=== PATIENT | female | born 1990 ===

== ENCOUNTER 2016-11-30 19:41 | Emergency (ER) | payer SELFPAY ==
[2016-11-30 19:49] VITALS: BP 122/77; PULSE 62; RESP 18; TEMP 97.4; O2SAT 100
--- NOTE | 2016-11-30 20:15 | ED PDOC ---
HPI: Back Time Seen by Provider: 11/30/16 20:01 Chief Complaint (Nursing): Back Pain Chief Complaint (Provider): back pain History Per: Patient History/Exam Limitations: no limitations Onset/Duration Of Symptoms: Days (2) Current Symptoms Are (Timing): Still Present Exacerbating Factor(s): Turning, Movement Additional History Per: Patient Additional Complaint(s): 26 y/o female presents for eval of right upper back pain x 2 days. 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 Patient also noted blood mixed with her urine a few days ago. Denies fever, nausea/vomiting, chest pain, abdominal pain, changes in bowel movements, dysuria, vaginal bleeding/discharge. Past Medical History Reviewed: Historical Data, Nursing Documentation, Vital Signs Vital Signs: Last Vital Signs Temp 97.4 F L 11/30/16 19:49 Pulse 62 11/30/16 19:49 Resp 18 11/30/16 19:49 BP 122/77 11/30/16 19:49 Pulse Ox 100 11/30/16 19:49 - Medical History PMH: No Chronic Diseases - Surgical History Surgical History: No Surg Hx - Family History Family History: States: Unknown Family Hx - Home Medications Home Medications: Ambulatory Orders Medication Instructions Recorded Cyclobenzaprine [Cyclobenzaprine 10 mg PO BID PRN #10 tab 11/30/16 HCl] Lidocaine 5% [Lidoderm] 1 patch TOP DAILY #5 patch 11/30/16 Naproxen [Naprosyn] 500 mg PO Q12 PRN #20 tablet 11/30/16 - Allergies Allergies/Adverse Reactions: Allergies Allergy/AdvReac Type Severity Reaction Status Date / Time No Known Allergies Allergy Verified 01/28/14 16:51 Review of Systems ROS Statement: Except As Marked, All Systems Reviewed And Found Negative Musculoskeletal: Positive for: Back Pain Physical Exam - Reviewed Nursing Documentation Reviewed: Yes Vital Signs Reviewed: Yes - Physical Exam Appears: Positive for: Well, Non-toxic, No Acute Distress Head Exam: Positive for: ATRAUMATIC, NORMAL INSPECTION, NORMOCEPHALIC Skin: Positive for: Normal Color Eye Exam: Positive for: Normal appearance ENT: Positive for: Normal ENT Inspection Cardiovascular/Chest: Positive for: Regular Rate, Rhythm Respiratory: Positive for: Normal Breath Sounds Gastrointestinal/Abdominal: Positive for: Bowel Sounds, Soft, Tenderness (right flank) Back: Positive for: Muscle Spasm (right tspine paraspinals). Negative for: L CVA Tenderness, R CVA Tenderness, Vertebral Tenderness, Decreased ROM Extremity: Positive for: Normal ROM Neurologic/Psych: Positive for: Alert, Oriented - Laboratory Results Result Diagrams: 11/30/16 20:53 11/30/16 20:53 - ECG O2 Sat by Pulse Oximetry: 100 - Progress ED Course And Treament: urine shows large blood; will order labs, CT renal protocol to rule out renal stone. IV fluids, IV toradol, PO flexeril ordered EXAM: CT Abdomen and Pelvis Without Intravenous Contrast CLINICAL HISTORY: 26 years old, female; Pain; Abdominal pain; Flank; Right; Additional info: Right back/flank pain TECHNIQUE: Axial computed tomography images of the abdomen and pelvis without intravenous contrast. This CT exam was performed using one or more of the following dose reduction techniques: automated exposure control, adjustment of the mA and/or kV according to patient size, and/ or use of iterative reconstruction technique. Coronal and sagittal reformatted images were created and reviewed. COMPARISON: No relevant prior studies available. FINDINGS: Lower thorax: No acute findings. ABDOMEN: Liver: Unremarkable. Gallbladder and bile ducts: Unremarkable. No calcified stones. No ductal dilation. Pancreas: Unremarkable. No ductal dilation. Spleen: Unremarkable. No splenomegaly. Adrenals: Unremarkable. No mass. Kidneys and ureters: Unremarkable. No obstructing stones. No hydronephrosis. Stomach and bowel: No obstruction. Question mild mucosal thickening. Appendix: No findings to suggest acute appendicitis. PELVIS: Bladder: Unremarkable. No stones. Reproductive: Unremarkable as visualized. ABDOMEN and PELVIS: Intraperitoneal space: Unremarkable. No free air. No significant fluid collection. Bones/joints: No acute fracture. No dislocation. Soft tissues: Unremarkable. Vasculature: Unremarkable. No abdominal aortic aneurysm. Lymph nodes: Unremarkable. No enlarged lymph nodes. IMPRESSION: No CT evidence for obstructive uropathy Nonspecific nonobstructed bowel gas pattern On re-eval, patient states she is feeling better. Patient educated on findings, discharged with rx Naproxen, Flexeril, Lidoderm patch. Advised follow up PMD 2-3 days. Return to ED for worsening/concerning symptoms. Disposition - Clinical Impression Clinical Impression: Back strain - Patient ED Disposition Is Patient to be Admitted: No Counseled Patient/Family Regarding: Studies Performed, Diagnosis, Need For Followup, Rx Given - Disposition Referrals: [facility] [Outside] Disposition: Routine/Home Disposition Time: 23:09 Condition: IMPROVED Prescriptions: Cyclobenzaprine [Cyclobenzaprine HCl] 10 mg PO BID PRN #10 tab PRN Reason: Muscle Spasm Lidocaine 5% [Lidoderm] 1 patch TOP DAILY #5 patch Naproxen [Naprosyn] 500 mg PO Q12 PRN #20 tablet PRN Reason: Pain, Moderate (4-7) Instructions: Muscle Strain (ED) Forms: [facility] ED School/Work Excuse
[2016-11-30] MEDS ORDERED: Sodium Chloride 0.9% 1,000 ML IV STA (20:29)
[2016-11-30 21:06] LABS: BASO # 0.1 K/uL (0.0-0.2); BASO % 0.7 % (0.0-2.0); EOS # 0.5 K/uL (0.0-0.7); HEMOGLOBIN 14.7 g/dL (12.0-16.0); LYMPH # 3.2 K/uL (1.0-4.3); LYMPH % 35.5 % (20.0-40.0); MEAN CELL VOLUME 90.8 fl (81.0-99.0); MEAN CORPUSCULAR HEMOGLOBIN 31.5 pg (27.0-31.0); MEAN CORPUSCULAR HGB CONC 34.6 g/dL (33.0-37.0); MEAN PLATELET VOLUME 8.9 fl (7.2-11.7); MONO # 0.4 K/uL (0.0-0.8); MONO % 4.9 % (0.0-10.0); NEUT # 4.7 K/uL (1.8-7.0); NEUT % 52.9 % (50.0-75.0); NRBC % 0.1 % (0.0-0.0); RBC 4.69 Mil/uL (3.80-5.20); RED CELL DISTRIBUTION WIDTH 12.7 % (11.5-14.5)
[2016-11-30 21:08] LABS: ALB/GLOB RATIO 1.3 (1.0-2.1); ALBUMIN 4.5 g/dL (3.5-5.0); ALT/SGPT 37 U/L (9-52); AST/SGOT 34 U/L (14-36); BLOOD UREA NITROGEN 9 mg/dl (7-17); GFR AFRICAN-AMERICAN > 60; GFR NON-AFRICAN AMERICAN > 60
[2016-11-30 21:13] LABS: SQUAMOUS EPITHIAL 2 /hpf (0-5); URINE BACTERIA RARE (<OCC); URINE BILIRUBIN NEGATIVE (NEGATIVE); URINE BLOOD MODERATE (NEGATIVE); URINE CLARITY SLIGHTY-CLOUDY (Clear); URINE COLOR YELLOW (YELLOW); URINE GLUCOSE (UA) NEG (Normal); URINE LEUKOCYTE ESTERASE NEG Leu/uL (Negative); URINE NITRATE NEGATIVE (NEGATIVE); URINE PROTEIN 30 mg/dL (NEGATIVE); URINE UROBILINOGEN 0.2-1.0 mg/dL (0.2-1.0)
--- NOTE | 2016-12-01 11:30 | CT ---
PROCEDURE: CT Abdomen and Pelvis without intravenous contrast HISTORY: right back/flank pain COMPARISON: None. TECHNIQUE: Without contrast.. Contrast Dose: 0 Radiation dose: Total exam DLP = 872.79 mGy-cm. This CT exam was performed using one or more of the following dose reduction techniques: Automated exposure control, adjustment of the mA and/or kV according to patient size, and/or use of iterative reconstruction technique. FINDINGS: LOWER THORAX: Unremarkable. LIVER: Unremarkable. No gross lesion or ductal dilatation. GALLBLADDER AND BILE DUCTS: Unremarkable. PANCREAS: Unremarkable. No gross lesion or ductal dilatation. SPLEEN: Unremarkable. ADRENALS: Unremarkable. No mass. KIDNEYS AND URETERS: Unremarkable. No hydronephrosis. No solid mass. VASCULATURE: Unremarkable. No aortic aneurysm. BOWEL: Pancolonic diverticulosis. No evidence of diverticulitis. Mild mural thickening of the transverse colon, likely secondary to chronic muscular hypertrophy. Cannot rule out nonspecific transverse colitis. . No other abnormal bowel identified. No bowel obstruction. APPENDIX: Unremarkable. Normal appendix. PERITONEUM: Unremarkable. No free fluid. No free air. LYMPH NODES: Unremarkable. No enlarged lymph nodes. BLADDER: Unremarkable. REPRODUCTIVE: Normal uterus. BONES: No acute fracture. OTHER FINDINGS: None. IMPRESSION: No evidence of urinary calculus or urinary tract obstruction. Mckeon colonic diverticulosis. Mild mural thickening of the transverse colon most likely secondary to chronic muscular hypertrophy. Cannot rule out nonspecific transverse colitis. Please correlate. The remainder of the examination is unremarkable. Preliminary interpretation of this examination was reported by [employer] at 10:38 p.m. on 11/30/2016. There is discordance of this report with the preliminary interpretation. The possibility of a nonspecific transverse colitis was not discussed in the preliminary report of this examination.
== END 2016-11-30 23:31 | disposition home or self-care (01) ==
LOC: H.ER 19:41
DX: M62.830 Muscle spasm of back (principal); K57.30 Diverticulosis of large intestine without perforation or abscess without bleeding
CPT/HCPCS: 74176; 80053; 81003; 81025; 85025; 87086; 96360; 99283; J1885; J7040

== ENCOUNTER 2016-12-06 19:08 | Observation (INO) | payer SELFPAY ==
[2016-12-06 19:51] VITALS: BP 115/59; PULSE 64; RESP 16; TEMP 98; O2SAT 98
[2016-12-06] MEDS ORDERED: Sodium Chloride 0.9% 1,000 ML IV STA (20:32)
[2016-12-06] MEDS ORDERED: Iohexol 240 (50 ml) PO ONE (20:32)
--- NOTE | 2016-12-06 21:43 | ED PDOC ---
HPI: Abdomen Time Seen by Provider: 12/06/16 20:19 Chief Complaint (Nursing): Abdominal Pain Chief Complaint (Provider): Abdominal Pain History Per: Patient History/Exam Limitations: no limitations Onset/Duration Of Symptoms: Days (x2) Additional Complaint(s): Janet Grimaldo, 26 year old female presents to the ED with abdominal pain after falling in her bathtub 2 days prior to arrival. The patient reports injuring the left side of her abdomen and since then has had pain when twisting her torso. She also notes bruising to that area. PMD: None Provided Past Medical History Reviewed: Historical Data, Nursing Documentation, Vital Signs Vital Signs: Last Vital Signs Temp 98.0 F 12/06/16 19:47 Pulse 64 12/06/16 19:47 Resp 16 12/06/16 19:47 BP 115/59 L 12/06/16 19:47 Pulse Ox 98 12/06/16 22:11 - Medical History PMH: No Chronic Diseases - Family History Family History: States: Unknown Family Hx - Home Medications Home Medications: Ambulatory Orders Medication Instructions Recorded Cyclobenzaprine [Cyclobenzaprine 10 mg PO BID PRN #10 tab 11/30/16 HCl] Lidocaine 5% [Lidoderm] 1 patch TOP DAILY #5 patch 11/30/16 Naproxen [Naprosyn] 500 mg PO Q12 PRN #20 tablet 11/30/16 - Allergies Allergies/Adverse Reactions: Allergies Allergy/AdvReac Type Severity Reaction Status Date / Time No Known Allergies Allergy Verified 01/28/14 16:51 Review of Systems ROS Statement: Except As Marked, All Systems Reviewed And Found Negative Gastrointestinal: Positive for: Abdominal Pain Skin: Positive for: Bruising (to left side of abdomen ) Physical Exam - Reviewed Nursing Documentation Reviewed: Yes Vital Signs Reviewed: Yes - Physical Exam Appears: Positive for: Well, Non-toxic, No Acute Distress Head Exam: Positive for: ATRAUMATIC, NORMAL INSPECTION, NORMOCEPHALIC Skin: Positive for: Normal Color, Warm. Negative for: Rash Eye Exam: Positive for: EOMI, Normal appearance, PERRL ENT: Positive for: Normal ENT Inspection Neck: Positive for: Normal, Painless ROM Cardiovascular/Chest: Positive for: Regular Rate, Rhythm, Chest Non Tender Respiratory: Positive for: CNT, Normal Breath Sounds Gastrointestinal/Abdominal: Positive for: Normal Exam, Bowel Sounds, Soft, Tenderness (mild tenderness to LUQ), Other (ecchymosis to LUQ and all along the abdomen area along axillary side ) Back: Positive for: Normal Inspection. Negative for: L CVA Tenderness, R CVA Tenderness, Vertebral Tenderness Extremity: Positive for: Normal ROM Neurologic/Psych: Positive for: Alert, Oriented - Laboratory Results Result Diagrams: 12/06/16 23:17 12/06/16 23:17 - ECG O2 Sat by Pulse Oximetry: 98 (RA) Pulse Ox Interpretation: Normal Medical Decision Making Medical Decision Making: Impression: Abdominal Pain Plan: * Type and Screen * CT Abd Pelvis PO & IV Contrast * COMP Metabolic panel * HCG, Qualitative * NPO Diet * CBC (With Differential) * COAG * PT/INR COAG * IV Insertion (Saline Lock) * Urinalysis * Morphine 2 mg IVP * Sodium Chloride 0.9% 1,000 ml IV 100 mls/hr * Omnipaque 240 (50 ML) PO * Zofran Inj 4 mg IVP * Admit to Hospital Scribe Attestation: Documented by Elodia Ma, acting as a scribe for Torsten Bang PA-C. Provider Scribe Attestation: All medical record entries made by the Scribe were at my direction and personally dictated by me. I have reviewed the chart and agree that the record accurately reflects my personal performance of the history, physical exam, medical decision making, and the department course for this patient. I have also personally directed, reviewed, and agree with the discharge instructions and disposition. ED OBSERVATION Date of observation admission: 12/06/16 Time of observation admission: 20:31 - Observation admission statement Patient is being placed in observation because:: Time-extensive ED evaluation. - Goals of Observation Goals of observation are:: Results of ED workup and eventual disposition. - Progress Note Progress Note: 12/07/16 23:00 Pt in no distress. Still pending CT. Disposition - Clinical Impression Clinical Impression: Abdominal pain - Patient ED Disposition Is Patient to be Admitted: Transfer of Care (Signed out to Akosua AKINS pending disposition and CT results.) - Disposition Disposition Time: 00:00 Condition: STABLE
[2016-12-06] MEDS ORDERED: Iohexol 240 (50 ml) ONE (22:02)
[2016-12-06 23:25] LABS: BASO # 0.1 K/uL (0.0-0.2); BASO % 0.6 % (0.0-2.0); EOS # 0.3 K/uL (0.0-0.7); EOS % 2.7 % (0.0-4.0); HEMOGLOBIN 14.5 g/dL (12.0-16.0); LYMPH # 4.2 K/uL (1.0-4.3); LYMPH % 39.2 % (20.0-40.0); MEAN CELL VOLUME 91.5 fl (81.0-99.0); MEAN CORPUSCULAR HEMOGLOBIN 32.2 pg (27.0-31.0); MEAN CORPUSCULAR HGB CONC 35.2 g/dL (33.0-37.0); MEAN PLATELET VOLUME 9.2 fl (7.2-11.7); MONO # 0.5 K/uL (0.0-0.8); MONO % 4.7 % (0.0-10.0); NEUT # 5.7 K/uL (1.8-7.0); NEUT % 52.8 % (50.0-75.0); RBC 4.5 Mil/uL (3.80-5.20); WHITE BLOOD COUNT 10.8 K/uL (4.8-10.8)
[2016-12-06 23:33] LABS: ALB/GLOB RATIO 1.3 (1.0-2.1); ALBUMIN 4.3 g/dL (3.5-5.0); ALT/SGPT 46 U/L (9-52); AST/SGOT 63 U/L (14-36); BLOOD UREA NITROGEN 10 mg/dl (7-17); CALCIUM 9.3 mg/dL (8.4-10.2); GFR AFRICAN-AMERICAN > 60; GFR NON-AFRICAN AMERICAN > 60; SQUAMOUS EPITHIAL 1 /hpf (0-5); URINE BILIRUBIN NEGATIVE (NEGATIVE); URINE BLOOD NEGATIVE (NEGATIVE); URINE CLARITY SLIGHTY-CLOUDY (Clear); URINE COLOR YELLOW (YELLOW); URINE GLUCOSE (UA) NEG (Normal); URINE LEUKOCYTE ESTERASE NEG Leu/uL (Negative); URINE NITRATE NEGATIVE (NEGATIVE); URINE PROTEIN NEGATIVE (NEGATIVE); URINE UROBILINOGEN 0.2-1.0 mg/dL (0.2-1.0)
[2016-12-06 23:55] LABS: PROTHROMBIN TIME 10.9 Seconds (9.8-13.1)
[2016-12-06 23:56] LABS: PARTIAL THROMBOPLASTIN TIME 28.2 Seconds (25.6-37.1)
[2016-12-07] MEDS ORDERED: Sodium Chloride 0.9% 50 ML IV ONE (00:35)
[2016-12-07] MEDS ORDERED: Iohexol 300 100 ML IJ ONE (00:35)
--- NOTE | 2016-12-07 01:34 | ED PDOC ---
- Laboratory Results Result Diagrams: 12/06/16 23:17 12/06/16 23:17 - ECG O2 Sat by Pulse Oximetry: 98 (RA) - Progress ED Course And Treament: Case endorsed to signwriter from Beti AKINS pending CT EXAM: CT Abdomen and Pelvis With Intravenous Contrast CLINICAL HISTORY: 26 years old, female; Injury or trauma; Fall; Initial encounter; Blunt; Luq; Additional info: Luq ecchymosis and l axillary ecchymosis TECHNIQUE: Axial computed tomography images of the abdomen and pelvis with intravenous contrast. This CT exam was performed using one or more of the following dose reduction techniques : automated exposure control, adjustment of the mA and/or kV according to patient size, and/ or use of iterative reconstruction technique. Coronal and sagittal reformatted images were created and reviewed. CONTRAST: 90 mL of [id number] administered intravenously. EXAM DATE/TIME: 12/06/2016 8:29 PM COMPARISON: CT - ABD PELVIS W/O PO OR IV CONT 11/30/2016 9:46:32 PM FINDINGS: ABDOMEN: Liver: Unremarkable. No mass. Gallbladder and bile ducts: Unremarkable. No calcified stones. No ductal dilation. Pancreas: Unremarkable. No mass. No ductal dilation. Spleen: Unremarkable. No splenomegaly. Adrenals: Unremarkable. No mass. Kidneys and ureters: Unremarkable. No solid mass. No hydronephrosis. Stomach and bowel: Unremarkable. No obstruction. No mucosal thickening. Appendix: The appendix is not visualized with certainty. There is no chirag pericecal inflammation or or pericecal fluid collection to suggest appendicitis. (Please note that acute appendicitis cannot be completely excluded without the visualization of a normal appendix). PELVIS: Bladder: Unremarkable. No mass. Reproductive: Unremarkable as visualized. ABDOMEN and PELVIS: Intraperitoneal space: Unremarkable. No free air. No significant fluid collection. Bones/joints: No acute fracture. No dislocation. Vasculature: There is no aortic aneurysm or dissection. Lymph nodes: Unremarkable. No enlarged lymph nodes. IMPRESSION: No acute findings. Patient educated on findings, discharged with rx Naproxen. Advised follow up PMD 2-3 days. Return to ED for worsening/concerning symptoms. Disposition - Clinical Impression Clinical Impression: Abdominal pain - POA Present On Arrival: Falls Or Trauma - Disposition Disposition: Routine/Home Disposition Time: 01:36 Condition: STABLE
--- NOTE | 2016-12-07 10:32 | CT ---
PROCEDURE: CT Abdomen and Pelvis with contrast HISTORY: LUQ ecchymosis and L axillary ecchymosis COMPARISON: 11/30/2016 TECHNIQUE: Contrast dose: 90 mL Omnipaque 300 Radiation dose: Total exam DLP = 559.94 mGy-cm. This CT exam was performed using one or more of the following dose reduction techniques: Automated exposure control, adjustment of the mA and/or kV according to patient size, and/or use of iterative reconstruction technique. FINDINGS: LOWER THORAX: Unremarkable. LIVER: Unremarkable. No gross lesion or ductal dilatation. GALLBLADDER AND BILE DUCTS: Unremarkable. PANCREAS: Unremarkable. No gross lesion or ductal dilatation. SPLEEN: Unremarkable. ADRENALS: Unremarkable. No mass. KIDNEYS AND URETERS: Unremarkable. No hydronephrosis. No solid mass. VASCULATURE: Unremarkable. No aortic aneurysm. BOWEL: Scattered colonic diverticular APPENDIX: Normal appendix not visualized. No secondary findings to suggest acute appendicitis. PERITONEUM: Unremarkable. No free fluid. No free air. LYMPH NODES: Unremarkable. No enlarged lymph nodes. BLADDER: Unremarkable. REPRODUCTIVE: Normal uterus BONES: No acute fracture. OTHER FINDINGS: None. IMPRESSION: No acute abnormality. Preliminary interpretation of this examination was reported by [employer] at 1:26 a.m. on 12/07/2016. There is concurrence of this report with the preliminary interpretation.
== END 2016-12-07 01:38 | disposition home or self-care (01) ==
LOC: H.ER 19:08 → H.EROBSV 20:31
PROVIDERS: ADMIT Emergency Medicine; ATTEND Emergency Medicine
DX: R10.9 Unspecified abdominal pain (principal); W18.39XA Other fall on same level, initial encounter
CPT/HCPCS: 36415; 74177; 80053; 81003; 81025; 84703; 85025; 85610; 85730; 86850; 86900; 96374; 96375; G0378; J2270; J2405; J7040; Q9966; Q9967

== ENCOUNTER 2017-02-19 13:25 | Emergency (ER) | payer BC ==
[2017-02-19 13:41] VITALS: BP 137/78; PULSE 66; RESP 20; TEMP 97; O2SAT 99
--- NOTE | 2017-02-19 13:50 | ED PDOC ---
HPI: Dental Pain/Injury Time Seen by Provider: 02/19/17 13:48 Chief Complaint (Nursing): Dental Pain Chief Complaint (Provider): dental History Per: Patient History/Exam Limitations: no limitations Additional Complaint(s): 26yo F in ED for eval of tooth injury-states she cracked her tooth, took motrin not working no fever no chills no sore throat. will see dentist irene. Past Medical History Reviewed: Historical Data, Nursing Documentation, Vital Signs Vital Signs: Last Vital Signs Temp 97 F L 02/19/17 13:39 Pulse 66 02/19/17 13:39 Resp 20 02/19/17 13:39 BP 137/78 02/19/17 13:39 Pulse Ox 99 02/19/17 13:39 - Medical History PMH: No Chronic Diseases - Family History Family History: States: Unknown Family Hx - Home Medications Home Medications: Ambulatory Orders Medication Instructions Recorded Cyclobenzaprine [Cyclobenzaprine 10 mg PO BID PRN #10 tab 11/30/16 HCl] Lidocaine 5% [Lidoderm] 1 patch TOP DAILY #5 patch 11/30/16 Naproxen [Naprosyn] 500 mg PO Q12 PRN #20 tablet 11/30/16 Naproxen [Naprosyn] 500 mg PO Q12 PRN #20 tablet 12/07/16 Acetaminophen with Codeine 1 each PO Q8 #12 tablet 02/19/17 [Tylenol with Codeine #3 Tablet] Naproxen [Naprosyn] 500 mg PO BID #30 tablet 02/19/17 - Allergies Allergies/Adverse Reactions: Allergies Allergy/AdvReac Type Severity Reaction Status Date / Time No Known Allergies Allergy Verified 01/28/14 16:51 Review of Systems ROS Statement: Except As Marked, All Systems Reviewed And Found Negative Constitutional: Negative for: Fever, Chills Physical Exam - Reviewed Nursing Documentation Reviewed: Yes Vital Signs Reviewed: Yes - Physical Exam Appears: Positive for: Well, Non-toxic, No Acute Distress Skin: Positive for: Normal Color, Warm, DRY ENT: Positive for: Other (dental: upper right molar-injury carcked tooth noted no swelilng to gums no draainge. no signs of infection. ) Cardiovascular/Chest: Positive for: Regular Rate, Rhythm Respiratory: Positive for: CNT, Normal Breath Sounds Neurologic/Psych: Positive for: Alert, Oriented - ECG O2 Sat by Pulse Oximetry: 99 Medical Decision Making Medical Decision Making: pt opts to have Rx for pain control and not medicate din ED st[place] VS and well appearing advised to maintain appoint. Disposition - Clinical Impression Clinical Impression: Dental injury - Patient ED Disposition Is Patient to be Admitted: No Counseled Patient/Family Regarding: Need For Followup, Rx Given - Disposition Disposition: Routine/Home Disposition Time: 13:51 Condition: STABLE Prescriptions: Acetaminophen with Codeine [Tylenol with Codeine #3 Tablet] 1 each PO Q8 #12 tablet Naproxen [Naprosyn] 500 mg PO BID #30 tablet Instructions: Acute Dental Trauma (ED)
== END 2017-02-19 14:25 | disposition home or self-care (01) ==
LOC: H.ER 13:25
DX: K08.89 Other specified disorders of teeth and supporting structures (principal)

== ENCOUNTER 2017-02-26 14:37 | Emergency (ER) | payer BC ==
[2017-02-26 14:46] VITALS: BP 108/61; PULSE 80; RESP 16; TEMP 98.3; O2SAT 99
--- NOTE | 2017-02-26 15:26 | ED PDOC ---
HPI: General Adult Time Seen by Provider: 02/26/17 14:55 Chief Complaint (Nursing): GI Problem History Per: Patient Current Symptoms Are (Timing): Gone Now Severity: None Additional History Per: Patient Additional Complaint(s): 26 y/o female complaining of right upper tooth pain for the last week that was sudden onset and atraumatic. She denies any gingival swelling or fever. 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 No abdominal pain, hematemesis, or diarrhea. At this time she denies any complaints but pt. was instructed to get doctor's note before returning to work. Past Medical History Vital Signs: Last Vital Signs Temp 98.3 F 02/26/17 14:43 Pulse 80 02/26/17 14:43 Resp 16 02/26/17 14:43 BP 108/61 02/26/17 14:43 Pulse Ox 99 02/26/17 15:29 - Medical History PMH: No Chronic Diseases - Surgical History Surgical History: No Surg Hx - Family History Family History: States: Unknown Family Hx - Social History Current smoker - smoking cessation education provided: No Ex-Smoker (has not smoked in the last 12 months): No Alcohol: None Drugs: Denies - Home Medications Home Medications: Ambulatory Orders Medication Instructions Recorded Cyclobenzaprine [Cyclobenzaprine 10 mg PO BID PRN #10 tab 11/30/16 HCl] Lidocaine 5% [Lidoderm] 1 patch TOP DAILY #5 patch 11/30/16 Naproxen [Naprosyn] 500 mg PO Q12 PRN #20 tablet 11/30/16 Naproxen [Naprosyn] 500 mg PO Q12 PRN #20 tablet 12/07/16 Acetaminophen with Codeine 1 each PO Q8 #12 tablet 02/19/17 [Tylenol with Codeine #3 Tablet] Naproxen [Naprosyn] 500 mg PO BID #30 tablet 02/19/17 - Allergies Allergies/Adverse Reactions: Allergies Allergy/AdvReac Type Severity Reaction Status Date / Time No Known Allergies Allergy Verified 01/28/14 16:51 Review of Systems ROS Statement: Except As Marked, All Systems Reviewed And Found Negative Constitutional: Negative for: Fever Gastrointestinal: Positive for: Vomiting. Negative for: Nausea, Abdominal Pain , Hematemesis Physical Exam - Physical Exam Appears: Positive for: Well, No Acute Distress Skin: Positive for: Normal Color, Warm, Dry ENT: Positive for: Normal ENT Inspection, Other (no gingival swelling or obvious caries). Negative for: Pharyngeal Erythema, Tonsillar Exudate, Tonsillar Swelling Gastrointestinal/Abdominal: Positive for: Normal Exam, Bowel Sounds, Soft. Negative for: Tenderness, Guarding, Rebound Back: Negative for: L CVA Tenderness, R CVA Tenderness - ECG O2 Sat by Pulse Oximetry: 99 Medical Decision Making Medical Decision Making: Patient seen and evaluated. At this time she is asymptomatic. Encouraged her to take Motrin with food to decrease risk of nausea. Also encouraged her to follow up with a dentist. Patient expressed agreement and understanding. She was discharged in stable condition. ~ Scribe Attestation: Documented by Nicki Ugarte, acting as a scribe for THUAN Mcmullen. Provider Scribe Attestation: All medical record entries made by the Scribe were at my direction and personally dictated by me. I have reviewed the chart and agree that the record accurately reflects my personal performance of the history, physical exam, medical decision making, and the department course for this patient. I have also personally directed, reviewed, and agree with the discharge instructions and disposition. Disposition - Clinical Impression Clinical Impression: Toothache, Medication reaction - Patient ED Disposition Is Patient to be Admitted: No Doctor Will See Patient In The: Office Counseled Patient/Family Regarding: Diagnosis, Need For Followup - Disposition Referrals: [facility] [Outside] [facility] [Outside] Disposition: Routine/Home Disposition Time: 15:25 Condition: STABLE Instructions: Acute Nausea and Vomiting (ED), Toothache (ED) Forms: [employer] (Sing[place]an), [facility] ED School/Work Excuse Print Language: [id number]
== END 2017-02-26 15:44 | disposition home or self-care (01) ==
LOC: H.ER 14:37
DX: R11.2 Nausea with vomiting, unspecified (principal); T88.7XXA Unspecified adverse effect of drug or medicament, initial encounter; K08.89 Other specified disorders of teeth and supporting structures